=== PATIENT | female | born 1970 | race Caucasian/White ===

== ENCOUNTER → 2019-08-13 | Outpatient (CLI) | payer OTHER ==
[2019-08-13 13:15] LABS: ABSOLUTE EOSINOPHILS # (AUTO) 0.2 10^3/uL (0.0-0.6); ABSOLUTE LYMPHOCYTES (AUTO) 3.9 10^3/uL (0.5-4.7); ABSOLUTE MONOCYTES (AUTO) 0.8 10^3/uL (0.1-1.4); ABSOLUTE NEUT (AUTO) 6.9 10^3/uL (1.7-8.2); BASOPHILS % (AUTO) 0.3 % (0-2); EOSINOPHILS % (AUTO) 1.3 % (0-6); HEMATOCRIT 38.9 % (36.0-47.0); HEMOGLOBIN 13.3 g/dL (12.0-15.5); LYMPHOCYTES % (AUTO) 33.4 % (13-45); MEAN CORPUSCULAR HEMOGLOBIN 31.4 pg (27.0-33.4); MEAN CORPUSCULAR HGB CONC 34.1 g/dL (32.0-36.0); MEAN CORPUSCULAR VOLUME 92 fl (80-97); MONOCYTES % (AUTO) 6.9 % (3-13); PLATELET COUNT 242 10^3/uL (150-450); RED BLOOD COUNT 4.23 10^6/uL (3.72-5.28); RED CELL DISTRIBUTION WIDTH 15.1 % (11.5-14.0); SEGMENTED NEUTROPHILS % (AUTO) 58.1 % (42-78); TOTAL CELLS COUNTED % (AUTO) 100 %; WHITE BLOOD COUNT 11.8 10^3/uL (4.0-10.5)
[2019-08-13 13:23] LABS: APPEARANCE,URINE SLIGHTLY-CLOUDY; BILIRUBIN,URINE NEGATIVE (NEGATIVE); COLOR,URINE YELLOW; GLUCOSE, URINE NEGATIVE (NEGATIVE); KETONES,URINE NEGATIVE (NEGATIVE); LEUKOCYTE ESTERASE,URINE NEGATIVE (NEGATIVE); NITRITE,URINE NEGATIVE (NEGATIVE); PROTEIN,URINE NEGATIVE (NEGATIVE); URINE SPECIFIC GRAVITY 1.017; UROBILINOGEN,URINE NEGATIVE mg/dL (<2.0)
[2019-08-13 13:35] LABS: ANION GAP 5 (5-19); BLOOD UREA NITROGEN 27 mg/dL (7-20); CALCIUM 9.6 mg/dL (8.4-10.2); CARBON DIOXIDE 31 mmol/L (22-30); CHLORIDE 101 mmol/L (98-107); GLUCOSE 94 mg/dL (75-110); POTASSIUM 3.8 mmol/L (3.6-5.0)
--- NOTE | 2019-08-13 13:40 | RADIOLOGY REPORT (SQ) ---
EXAM DESCRIPTION: CHEST PA/LATERAL COMPLETED DATE/TIME: 08/13/2019 12:47 pm REASON FOR STUDY: PRE-OP COMPARISON: None. EXAM PARAMETERS: NUMBER OF VIEWS: two views TECHNIQUE: Digital Frontal and Lateral radiographic views of the chest acquired. RADIATION DOSE: NA LIMITATIONS: none FINDINGS: LUNGS AND PLEURA: No opacities, masses or pneumothorax. No pleural effusion. MEDIASTINUM AND HILAR STRUCTURES: No masses or contour abnormalities. HEART AND VASCULAR STRUCTURES: Heart normal size. No evidence for failure. BONES: No acute findings. HARDWARE: None in the chest. OTHER: No other significant finding. IMPRESSION: NO SIGNIFICANT RADIOGRAPHIC FINDING IN THE CHEST. TECHNICAL DOCUMENTATION: JOB ID: [id number] [employer]- All Rights Reserved Reading location - IP/workstation name: [email or web address]
--- NOTE | 2019-08-13 21:37 | EKG REPORT ---
SEVERITY:- ABNORMAL ECG - SINUS RHYTHM CONSIDER ANTERIOR INFARCT : Confirmed by: Christiane Hamlin 13-Aug-2019 21:36:40
== END ==
LOC: OD 11:59
PROVIDERS: ATTEND Orthopaedic Surgery
DX: Z01.810 Encounter for preprocedural cardiovascular examination (principal); Z01.811 Encounter for preprocedural respiratory examination; Z01.812 Encounter for preprocedural laboratory examination; M16.11 Unilateral primary osteoarthritis, right hip
CPT/HCPCS: 36415; 71046; 80048; 81001; 85025; 93005; 93010

== ENCOUNTER 2019-09-09 05:43 | Inpatient (IN) | payer OTHER ==
[~2019-09-09 05:43] MED LIST: BUPIVACAINE INJ/PF LIPOSOME/PF 266 MG/20 ML SDV INJ PRN; CEFAZOLIN INJ 1 GM VIAL IV PRN; IBUPROFEN 800 MG in NORMAL SALINE 250 ML IV PRN; LACTATED RINGERS 1000 ML IV PRN; LIDOCAINE 0.5% INJ-PF (5 MG/ML) 50 ML SDV SUBCUT PRN; OXYCODONE HCL SR 10 MG TABLET PO PRN; PANTOPRAZOLE SODIUM 20 MG TABLET.DR PO PRN; VANCOMYCIN HCL 1,000 MG in DEXTROSE 5%-WATER 250 ML IV PRN
[2019-09-09] MEDS ORDERED: OXYCODONE HCL SR 10 MG TABLET PO ONE (06:07)
[2019-09-09] MEDS ORDERED: CEFAZOLIN INJ 1 GM VIAL ONE (06:07)
[2019-09-09] MEDS ORDERED: PANTOPRAZOLE SODIUM 20 MG TABLET.DR PO ONE (06:07)
[2019-09-09] MEDS ORDERED: PROPOFOL INJ 200 MG/20 ML VIAL IV ONE (06:44)
[2019-09-09] MEDS ORDERED: ONDANSETRON HCL INJ/PF 4 MG/2 ML SDV ONE (06:44)
[2019-09-09] MEDS ORDERED: MIDAZOLAM 2 MG/2 ML INJ ONE (06:44)
[2019-09-09] MEDS ORDERED: FENTANYL CITRATE INJ/PF 100 MCG/2 ML AMPUL ONE ×2 (06:44→09:38)
[2019-09-09] MEDS ORDERED: TRANEXAMIC ACID INJ/PF 1,000 MG/10 ML SDV ONE ×2 (06:45→09:38)
[2019-09-09] MEDS ORDERED: METHYLPREDNISOLONE INJ 125 MG/2 ML SDV ONE (07:02)
[2019-09-09] MEDS ORDERED: DIPHENHYDRAMINE HCL 50 MG/ML VIAL IV PRN ×2 (08:14→08:36)
[2019-09-09] MEDS ORDERED: MEPERIDINE HCL/PF INJ 25 MG/1 ML DISP.SYRIN IV PRN (08:14)
[2019-09-09] MEDS ORDERED: FENTANYL CITRATE INJ/PF 100 MCG/2 ML AMPUL IV PRN ×3 (08:14)
[2019-09-09] MEDS ORDERED: PROMETHAZINE HCL INJ 25 MG/1 ML VIAL IV PRN (08:14)
[2019-09-09] MEDS ORDERED: ONDANSETRON 4 MG TAB.RAPDIS PO PRN (08:36)
[2019-09-09] MEDS ORDERED: ACETAMINOPHEN 325 MG TABLET PO PRN (08:36)
[2019-09-09] MEDS ORDERED: RINGERS SOLUTION,LACTATED 1,000 ML IV PRN (08:36)
[2019-09-09] MEDS ORDERED: ZOLPIDEM TARTRATE 5 MG TABLET PO PRN (08:36)
[2019-09-09] MEDS ORDERED: ONDANSETRON HCL INJ/PF 4 MG/2 ML SDV IV PRN (08:36)
[2019-09-09] MEDS ORDERED: MAG HYDROX/AL HYDROX/SIMETH SUSP 30 ML UDCUP PO PRN (08:36)
--- NOTE | 2019-09-09 08:41 | Operative Report ---
Operative Report DATE OF SURGERY: 09/09/19 PREOPERATIVE DIAGNOSIS: Right hip avascular necrosis OPERATION: Right hip arthroplasty SURGEON: JOI CLARK ANESTHESIA: Spinal TISSUE REMOVED OR ALTERED: Femoral head to pathology ESTIMATED BLOOD LOSS: 75 PROCEDURE: Implants used: Femur: [place] Accolade 2 stem size 4 Acetabular shell: 54 mm hemispherical shell Liner: 36 mm flat cross-link polyethylene liner Head: 36 mm chrome cobalt head -5 neck The patient is placed in a left lateral decubitus position on the operating table. The right lower extremity and hindquarter is prepped and draped in a sterile fashion. A curvilinear incision was made over the greater trochanter a posterior approach the hip was taken. The femoral head is dislocated and the femoral neck transected using an oscillating saw. Attention was next turned to the acetabulum. Soft tissues cleared off the acetabulum using electrocautery. The acetabulum was then prepared using a series of hemispherical reamers until a 54 millimeters reamer is seated. Subsequently a 54 millimeters Candi titanium hemispherical shell is impacted into position. A standard flat 36 millimeters cross-link liner is impacted into the shell. Attention was next turned to the femur. Access is gained to the femoral canal using a box osteotome to the piriformis fossa. The femur is then prepared using a series of broaches until a number 4 broach is seated. A trial reduction was now performed using a 36 millimeters head with and is 5 neck. Preoperative leg length was recreated and is excellent anterior posterior stability. A decision was made to proceed with the above construct. All trial implants were removed. The wound is irrigated with pulsed lavage. A number 4 stem is impacted into the femoral canal. A trial reduction was again performed with a 36 mm head and a -5 neck. Findings as previously. The hip was dislocated one last time and the final chrome-cobalt head is impacted onto the t runnion. The hip was reduced. Wound is copiously irrigated with pulsed lavage. Sent closed in layers using interrupted Vicryl followed by anthony. A sterile dressing is applied and the patient's returned to recovery room in satisfactory patient.
[2019-09-09] MEDS ORDERED: ACETAMINOPHEN 1,000 MG/100 ML RTUPB IV ONE (09:38)
--- NOTE | 2019-09-09 09:53 | RADIOLOGY REPORT (SQ) ---
EXAM DESCRIPTION: PELVIS AP COMPLETED DATE/TIME: 09/09/2019 9:28 am REASON FOR STUDY: Post Op Long Cassette in PACU M16.11 UNILATERAL PRIMARY OSTEOARTHRITIS, RIGHT HI P COMPARISON: None. NUMBER OF VIEWS: One view TECHNIQUE: Digital radiographic images of the pelvis post-procedure LIMITATIONS: None. FINDINGS: BONES: Ossific fragment along the superolateral acetabulum possibly postoperative changes or fragmented osteophyte. No additional evidence of fracture. DEVICE: Bi-polar prothesis. Device appears in appropriate location. SOFT TISSUES: No worrisome findings. Expected postoperative soft tissue changes. IMPRESSION: Postoperative changes from the right hip arthroplasty in near anatomic alignment. Ossif ic fragment along the superolateral acetabulum possibly fracture of the superolateral acetabular wall , postoperative change, or fragmented osteophyte. TECHNICAL DOCUMENTATION: JOB ID: [id number] [employer]- All Rights Reserved Reading location - IP/workstation name: [email or web address]
[2019-09-09] MEDS ORDERED: (PENDING PHARMACY ID) (Magnesium Oxide [Magnesium] 250 MG) PO SCH (10:00)
[2019-09-09] MEDS ORDERED: (PENDING PHARMACY ID) (Pravastatin Sodium [Pravastatin Sodium] 40 MG) PO SCH (10:00)
[2019-09-09] MEDS ORDERED: METRONIDAZOLE TOP SCH (10:00)
[2019-09-09] MEDS ORDERED: TRANEXAMIC ACID INJ/PF 1,000 MG/10 ML SDV IV ONE (10:00)
[2019-09-09] MEDS ORDERED: (PENDING PHARMACY ID) (Loratadine [Loratadine] 10 MG) PO SCH (10:00)
[2019-09-09] MEDS ORDERED: (PENDING PHARMACY ID) (Pregabalin [Pregabalin] 150 MG) PO SCH (10:00)
[2019-09-09] MEDS ORDERED: (PENDING PHARMACY ID) (Phentermine Hcl [Phentermine Hcl] 37.5 MG) PO SCH (10:00)
[2019-09-09] MEDS ORDERED: (PENDING PHARMACY ID) (Lisinopril/Hydrochlorothiazide [Lisinopril-Hctz 10-12.5 Mg Tab] 1 T PO SCH (10:00)
[2019-09-09] MEDS ORDERED: PREDNISONE 10 MG TABLET PO SCH (10:00)
[2019-09-09] MEDS ORDERED: (PENDING PHARMACY ID) (Estradiol [Estradiol] 1 MG) PO SCH (10:00)
[2019-09-09] MEDS ORDERED: DOXYCYCLINE HYCLATE 100 MG PO SCH (10:00)
[2019-09-09] MEDS ORDERED: LEVOTHYROXINE SODIUM 0.025 MG TABLET PO SCH (10:00)
[2019-09-09] MEDS: SENNOSIDES/DOCUSATE 8.6-50 MG 1 EACH TABLET PO SCH ×2 (10:30→17:03)
[2019-09-09] MEDS: VERAPAMIL HCL 80 MG TABLET PO SCH (12:46)
[2019-09-09] MEDS: FUROSEMIDE 20 MG TABLET PO SCH (12:47)
[2019-09-09] MEDS: OXYCODONE HCL SR 10 MG TABLET PO SCH ×2 (13:08→21:10)
[2019-09-09] MEDS: PRENATAL VITAMIN W DHA CAPSULE PO SCH (13:08)
[2019-09-09] MEDS: IBUPROFEN 800 MG in NORMAL SALINE 250 ML IV SCH ×2 (13:31→21:08)
[2019-09-09] MEDS: PREGABALIN 75 MG CAPSULE PO SCH ×2 (13:45→21:10)
[2019-09-09] MEDS: OXYCODONE HCL IR 5 MG TABLET PO PRN (16:47)
[2019-09-09] MEDS: HYDROCORTISONE SOD SUCCINATE INJ/PF 100 MG/2 ML SDV IV SCH (17:03)
[2019-09-09] MEDS: DOXYCYCLINE HYCLATE 100 MG TABLET PO SCH (17:03)
[2019-09-09] MEDS ORDERED: VANCOMYCIN HCL 1,000 MG in DEXTROSE 5%-WATER 250 ML IV ONE (20:36)
[2019-09-09] MEDS ORDERED: ATORVASTATIN CALCIUM 10 MG TABLET PO SCH (22:00)
[2019-09-09] MEDS: LORATADINE 10 MG TABLET PO SCH (22:00)
[2019-09-10] MEDS ORDERED: HYDROCORTISONE SOD SUCCINATE INJ/PF 100 MG/2 ML SDV IV ONE
[2019-09-10] MEDS: OXYCODONE HCL IR 5 MG TABLET PO PRN ×2 (00:16→05:49)
[2019-09-10] MEDS: HYDROCORTISONE SOD SUCCINATE INJ/PF 100 MG/2 ML SDV IV SCH (00:16)
[2019-09-10 05:44] LABS: HEMATOCRIT 35.5 % (36.0-47.0); HEMOGLOBIN 12.4 g/dL (12.0-15.5); MEAN CORPUSCULAR HEMOGLOBIN 32.3 pg (27.0-33.4); MEAN CORPUSCULAR VOLUME 92 fl (80-97); PLATELET COUNT 216 10^3/uL (150-450); RED BLOOD COUNT 3.85 10^6/uL (3.72-5.28); RED CELL DISTRIBUTION WIDTH 14.4 % (11.5-14.0); WHITE BLOOD COUNT 10.1 10^3/uL (4.0-10.5)
[2019-09-10] MEDS: PREGABALIN 75 MG CAPSULE PO SCH (05:50)
[2019-09-10] MEDS: DOXYCYCLINE HYCLATE 100 MG TABLET PO SCH (05:51)
[2019-09-10] MEDS: IBUPROFEN 800 MG in NORMAL SALINE 250 ML IV SCH (05:51)
[2019-09-10] MEDS ORDERED: PANTOPRAZOLE SODIUM 40 MG TABLET.DR PO SCH (06:00)
[2019-09-10] MEDS ORDERED: LEVOTHYROXINE SODIUM 0.1 MG TABLET PO SCH (06:00)
[2019-09-10] MEDS ORDERED: LEVOTHYROXINE SODIUM 0.025 MG TABLET PO SCH (06:00)
[2019-09-10 06:24] LABS: ANION GAP 8 (5-19); BLOOD UREA NITROGEN 24 mg/dL (7-20); CALCIUM 9.3 mg/dL (8.4-10.2); CARBON DIOXIDE 29 mmol/L (22-30); CHLORIDE 101 mmol/L (98-107); GLUCOSE 129 mg/dL (75-110); POTASSIUM 3.7 mmol/L (3.6-5.0)
--- NOTE | 2019-09-10 07:11 | PDOC DISCHARGE SUMMARY ---
Impression - Admit/DC Date/PCP Admission Date/Primary Care Provider: 09/09/19 05:43 NADINE THOMPSON MD Discharge Date: 09/10/19 - Discharge Diagnosis (1) Avascular necrosis of bone of right hip Is this a current diagnosis for this admission?: Yes - Additional Information Resuscitation Status: Full Code Discharge Diet: Regular Discharge Activity: Balance Activity w/Rest, No tub bath Referrals: JOI CLARK MD [ACTIVE STAFF] - 09/24/19 10:00 am NADINE THOMPSON MD [Primary Care Provider] - Home Medications: Celecoxib [Celebrex 200 mg Capsule] 200 mg PO Q12 09/09/19 Cholecalciferol (Vitamin D3) [Vitamin D3] 5,000 unit PO DAILY 09/09/19 Cyanocobalamin (Vitamin B-12) [Vitamin B-12] 5,000 mcg PO DAILY 09/09/19 Cyclobenzaprine HCl [Flexeril 10 mg Tablet] 10 mg PO Q8HP PRN 09/09/19 Doxycycline Hyclate [Vibramycin 100 mg Tablet] 100 mg PO Q12 09/09/19 Estradiol [Estrace] 1 mg PO BID 09/09/19 Furosemide [Lasix 20 mg Tablet] 20 mg PO DAILY 09/09/19 Lina Root [Lina] 550 mg PO DAILY 09/09/19 Hydrocodone/Acetaminophen [[place] 7.5-325 Tablet] 1 tab PO Q8HP PRN 09/09/19 Levothyroxine Sodium [Synthroid] 125 mcg PO Q6AM 09/09/19 Lisinopril/Hydrochlorothiazide [Zestoretic 10-12.5 mg Tablet] 1 tab PO DAILY 09/09/19 Loratadine [Claritin 10 mg Tablet] 10 mg PO DAILY 09/09/19 Magnesium 250 mg PO DAILY 09/09/19 Metronidazole/Skin Cleanser 23 [[place] 0.75% Cream Kit] 1 applic PO BIDP PRN 09/09/19 [place]-3/Dha/Epa/Fish Oil [Fish Oil 1,400 mg Softgel] 1,400 mg PO DAILY 09/09/19 Phentermine HCl [Adipex-P] 37.5 mg PO DAILY 09/09/19 Pravastatin Sodium [Pravachol] 40 mg PO DAILY 09/09/19 Prednisone [Deltasone 10 mg Tablet] 10 mg PO DAILY 09/09/19 Pregabalin [Lyrica] 150 mg PO Q8 09/09/19 Turmeric/Turmeric Ext/Pepr Ext [Turmeric Complex 500 mg Cap] 1 cap PO DAILY 09/09/19 Verapamil HCl [[place] 80 mg Tablet] 80 mg PO DAILY 09/09/19 History of Present Illiness History of Present Illness: GUERLINE RODRIGUEZ is a 49 year old female 49-year-old white female with progressive right hip pain and functional disability second to avascular necrosis. Patient is admitted for an elective right hip arthroplasty. Hospital Course Hospital Course: Patient is admitted through the operating where she undergoes an uncomplicated right hip arthroplasty. She is returned to floor in satisfactory condition. She makes excellent progress with physical therapy on the day of surgery. Physical Exam Vital Signs: Temp Pulse Resp BP Pulse Ox 36.9 C 70 17 123/74 97 09/10/19 04:15 09/10/19 04:15 09/10/19 04:15 09/10/19 04:15 09/10/19 04:15 Intake & Output 09/09/19 09/10/19 09/11/19 06:59 06:59 06:59 Intake Total 0 6710 Output Total 3460 Balance 0 3250 Weight 108.5 kg General appearance: PRESENT: no acute distress, obese Head exam: PRESENT: normocephalic Respiratory exam: PRESENT: unlabored Cardiovascular exam: PRESENT: RRR Vascular exam: PRESENT: normal capillary refill GI/Abdominal exam: PRESENT: soft Rectal exam: PRESENT: deferred Musculoskeletal exam: PRESENT: other - Right hip dressing clean dry and intact. Leg lengths are equal. Distal neurovascular examination is intact. Neurological exam: PRESENT: alert, awake, oriented to person, oriented to place, oriented to time, oriented to situation. ABSENT: motor sensory deficit Psychiatric exam: PRESENT: appropriate affect, normal mood. ABSENT: homicidal ideation, suicidal ideation Skin exam: PRESENT: dry, intact, warm. ABSENT: cyanosis, rash Results Laboratory Results: WBC 10.1 10^3/uL (4.0-10.5) 09/10/19 04:42 RBC 3.85 10^6/uL (3.72-5.28) 09/10/19 04:42 Hgb 12.4 g/dL (12.0-15.5) 09/10/19 04:42 Hct 35.5 % (36.0-47.0) L 09/10/19 04:42 MCV 92 fl (80-97) 09/10/19 04:42 MCH 32.3 pg (27.0-33.4) 09/10/19 04:42 MCHC 35.0 g/dL (32.0-36.0) 09/10/19 04:42 RDW 14.4 % (11.5-14.0) H 09/10/19 04:42 Plt Count 216 10^3/uL (150-450) 09/10/19 04:42 Sodium 138.4 mmol/L (137-145) 09/10/19 04:42 Potassium 3.7 mmol/L (3.6-5.0) 09/10/19 04:42 Chloride 101 mmol/L (98-107) 09/10/19 04:42 Carbon Dioxide 29 mmol/L (22-30) 09/10/19 04:42 Anion Gap 8 (5-19) 09/10/19 04:42 BUN 24 mg/dL (7-20) H 09/10/19 04:42 Creatinine 0.85 mg/dL (0.52-1.25) 09/10/19 04:42 Est GFR ( Amer) > 60 (>60) 09/10/19 04:42 Est GFR (MDRD) Non-Af > 60 (>60) 09/10/19 04:42 Glucose 129 mg/dL (75-110) H 09/10/19 04:42 Calcium 9.3 mg/dL (8.4-10.2) 09/10/19 04:42 Blood Type A POSITIVE 09/09/19 06:34 Antibody Screen NEGATIVE 09/09/19 06:34 Impressions: Pelvis X-Ray 09/09/19 08:37 IMPRESSION: Postoperative changes from the right hip arthroplasty in near anatomic alignment. Ossific fragment along the superolateral acetabulum possibly fracture of the superolateral acetabular wall, postoperative change, or fragmented osteophyte. Plan Plan of Treatment: Discharge home with home health services and DME. Follow-up with Dr. Clark [facility] for surgery in 2 weeks for staple removal. Stroke Is this a Stroke Patient?: No Stroke Pt being discharged on Anti-thrombolytic therapy?: Yes Acute Heart Failure - Is this a Heart Failure Patient?: No
[2019-09-10 09:29] VITALS: BP 149/90
[2019-09-10] MEDS ORDERED: PREDNISONE 10 MG TABLET PO SCH (10:00)
[2019-09-10] MEDS ORDERED: HYDROCHLOROTHIAZIDE 12.5 MG TABLET PO SCH (10:00)
[2019-09-10] MEDS ORDERED: ASPIRIN 81 MG TABLET, ENT COATED PO SCH (10:00)
[2019-09-10] MEDS ORDERED: LISINOPRIL 10 MG TABLET PO SCH (10:00)
[2019-09-10] MEDS ORDERED: MAGNESIUM OXIDE 400 MG TABLET PO SCH (10:00)
[2019-09-10] MEDS: OXYCODONE HCL SR 10 MG TABLET PO SCH (10:40)
[2019-09-10] MEDS: PRENATAL VITAMIN W DHA CAPSULE PO SCH (10:40)
[2019-09-10] MEDS: FUROSEMIDE 20 MG TABLET PO SCH (10:40)
[2019-09-10] MEDS: SENNOSIDES/DOCUSATE 8.6-50 MG 1 EACH TABLET PO SCH (10:40)
[2019-09-10] MEDS: LORATADINE 10 MG TABLET PO SCH (10:40)
[2019-09-10] MEDS: VERAPAMIL HCL 80 MG TABLET PO SCH (10:41)
== END 2019-09-10 11:10 | disposition home health service (06) | DRG 470 ==
LOC: INOR 05:43 → 4S 10:35
PROVIDERS: ADMIT Orthopaedic Surgery; ATTEND Orthopaedic Surgery
PROC: 0SR902Z Replacement of Right Hip Joint with Metal on Polyethylene Synthetic Substitute, Open Approach (ICD-10-PCS; principal; 2019-09-09 07:30)
DX: M87.051 Idiopathic aseptic necrosis of right femur (principal); E66.9 Obesity, unspecified; M05.10 Rheumatoid lung disease with rheumatoid arthritis of unspecified site; M16.11 Unilateral primary osteoarthritis, right hip; G62.9 Polyneuropathy, unspecified; E03.9 Hypothyroidism, unspecified; F41.9 Anxiety disorder, unspecified; F32.9 Major depressive disorder, single episode, unspecified; M54.5 Low back pain; M54.2 Cervicalgia; F17.210 Nicotine dependence, cigarettes, uncomplicated; W10.9XXA Fall (on) (from) unspecified stairs and steps, initial encounter; Z79.52 Long term (current) use of systemic steroids; Y93.89 Activity, other specified; Y99.8 Other external cause status
CPT/HCPCS: 01214; 36415; 72170; 80048; 84132; 85027; 86850; 86900; 86901; 88304; 88311; 94799; J0131; J0690; J1720; J1741; J2250; J2405; J2704; J2930; J3010; J3370; J3490; J7050; J7060; J7512

== ENCOUNTER 2020-04-27 08:25 | Inpatient (IN) | payer OTHER ==
[2020-04-22 10:33] LABS: HEMATOCRIT 37.9 % (36.0-47.0); HEMOGLOBIN 12.9 g/dL (12.0-15.5); MEAN CORPUSCULAR HEMOGLOBIN 31.6 pg (27.0-33.4); MEAN CORPUSCULAR HGB CONC 34.2 g/dL (32.0-36.0); MEAN CORPUSCULAR VOLUME 93 fl (80-97); PLATELET COUNT 229 10^3/uL (150-450); RED BLOOD COUNT 4.09 10^6/uL (3.72-5.28); RED CELL DISTRIBUTION WIDTH 14.2 % (11.5-14.0)
[2020-04-22 10:40] LABS: APPEARANCE,URINE CLEAR; BILIRUBIN,URINE NEGATIVE (NEGATIVE); COLOR,URINE STRAW; GLUCOSE, URINE NEGATIVE (NEGATIVE); KETONES,URINE NEGATIVE (NEGATIVE); LEUKOCYTE ESTERASE,URINE NEGATIVE (NEGATIVE); NITRITE,URINE NEGATIVE (NEGATIVE); PROTEIN,URINE NEGATIVE (NEGATIVE); URINE SPECIFIC GRAVITY 1.009; UROBILINOGEN,URINE NEGATIVE mg/dL (<2.0)
--- NOTE | 2020-04-22 10:53 | RADIOLOGY REPORT (SQ) ---
EXAM DESCRIPTION: CHEST PA/LATERAL IMAGES COMPLETED DATE/TIME: 04/22/2020 10:39 am REASON FOR STUDY: PRE-OP COMPARISON: 08/13/2019 EXAM PARAMETERS: NUMBER OF VIEWS: two views TECHNIQUE: Digital Frontal and Lateral radiographic views of the chest acquired. RADIATION DOSE: NA LIMITATIONS: none FINDINGS: LUNGS AND PLEURA: No opacities, masses or pneumothorax. No pleural effusion. MEDIASTINUM AND HILAR STRUCTURES: No masses or contour abnormalities. HEART AND VASCULAR STRUCTURES: Heart normal size. No evidence for failure. BONES: No acute findings. HARDWARE: None in the chest. OTHER: No other significant finding. IMPRESSION: 1. No significant interval changes since the prior examination dated 08/13/2019. No ac chrissie findings. TECHNICAL DOCUMENTATION: JOB ID: [id number] 2010 [employer]- All Rights Reserved Reading location - IP/workstation name: [email or web address]
[2020-04-22 10:57] LABS: ANION GAP 5 (5-19); BLOOD UREA NITROGEN 32 mg/dL (7-20); CALCIUM 9.5 mg/dL (8.4-10.2); CARBON DIOXIDE 29 mmol/L (22-30); CHLORIDE 103 mmol/L (98-107); GLUCOSE 63 mg/dL (75-110); POTASSIUM 4.5 mmol/L (3.6-5.0)
--- NOTE | 2020-04-22 13:15 | EKG REPORT ---
SEVERITY:- BORDERLINE ECG - SINUS RHYTHM CONSIDER ANTERIOR INFARCT : Confirmed by: Christiane Hamlin 22-Apr-2020 13:15:03
[~2020-04-27 08:25] MED LIST changes: +CEFAZOLIN 1 GM/D5W RTU 1 GM/50 ML RTUPB IV PRN; +DEXAMETHASONE SOD PHOSPHATE INJ 4 MG/1 ML VIAL ONE; +FENTANYL CITRATE INJ/PF 100 MCG/2 ML AMPUL ONE; +MIDAZOLAM 2 MG/2 ML INJ ONE; +ONDANSETRON HCL INJ/PF 4 MG/2 ML SDV ONE; +PROPOFOL INJ 200 MG/20 ML VIAL IV ONE; +TRANEXAMIC ACID INJ/PF 1,000 MG/10 ML SDV ONE
[2020-04-27] MEDS ORDERED: PANTOPRAZOLE SODIUM 20 MG TABLET.DR PO ONE (09:43)
[2020-04-27] MEDS ORDERED: OXYCODONE HCL SR 10 MG TABLET PO ONE (09:43)
[2020-04-27] MEDS ORDERED: BUPIVACAINE HCL 0.25% /EPINEPHRINE INJ/PF 30 ML SDV ONE (11:15)
[2020-04-27] MEDS ORDERED: THROMBIN (BOVINE) TOPICAL 20000 UNIT VIAL ONE (11:15)
[2020-04-27] MEDS ORDERED: THROMBIN (BOVINE) 5000 UNIT EPITAXIS KIT ONE (11:15)
[2020-04-27] MEDS ORDERED: CEFAZOLIN INJ 1 GM VIAL ONE (11:36)
[2020-04-27] MEDS ORDERED: FENTANYL CITRATE INJ/PF 100 MCG/2 ML AMPUL IV PRN ×3 (12:16)
[2020-04-27] MEDS ORDERED: DIPHENHYDRAMINE HCL 50 MG/ML VIAL IV PRN ×2 (12:16→12:54)
[2020-04-27] MEDS ORDERED: ONDANSETRON HCL INJ/PF 4 MG/2 ML SDV IV PRN ×2 (12:16→12:54)
[2020-04-27] MEDS ORDERED: MEPERIDINE HCL/PF INJ 25 MG/1 ML DISP.SYRIN IV PRN (12:16)
[2020-04-27] MEDS ORDERED: PROMETHAZINE HCL INJ 25 MG/1 ML VIAL IV PRN ×2 (12:16)
[2020-04-27] MEDS ORDERED: MORPHINE SULFATE 10 MG/ML INJ IV PRN (12:16)
--- NOTE | 2020-04-27 12:53 | Operative Report ---
Operative Report DATE OF SURGERY: 04/27/20 PREOPERATIVE DIAGNOSIS: Left hip arthritis OPERATION: Left hip arthroplasty SURGEON: JOI CLARK ANESTHESIA: Spinal TISSUE REMOVED OR ALTERED: Femoral head to pathology ESTIMATED BLOOD LOSS: 100 PROCEDURE: Implants used: Femur: [place] Accolade 2 stem, size 4 Acetabular shell: 52 mm hemispherical shell Liner: A 36 mm flat cross-link polyethylene liner Head: 36 mm chrome cobalt head -5 neck The patient is placed in a right lateral decubitus position on the operating table. The left lower extremity and hindquarter is prepped and draped in a sterile fashion. A curvilinear incision was made over the greater trochanter a posterior approach the hip was taken. The femoral head is dislocated and the femoral neck transected using an oscillating saw. Attention was next turned to the acetabulum. Soft tissues cleared off the acetabulum using electrocautery. The acetabulum was then prepared using a series of hemispherical reamers until a 52 millimeters reamer is seated. Subsequently a 52 millimeters Marla titanium hemispherical shell is impacted into position and secured with one screw. A standard flat 6 millimeters cross- link liner is impacted into the shell. Attention was next turned to the femur. Access is gained to the femoral canal using a box osteotome to the piriformis fossa. The femur is then prepared using a series of broaches until a number 4 broach is seated. A trial reduction was now performed using a 36 millimeters head with 9 is 5 neck. Preoperative leg length was recreated and is excellent anterior posterior stability. A decision was made to proceed with the above construct. All trial implants were removed. The wound is irrigated with pulsed lavage. A number 4 stem is impacted into the femoral canal. A trial reduction was again performed with a 36 mm head and a -5 neck. Findings as previously. The hip was dislocated one last time and the final chrome-cobalt head is impacted onto the trunnion. The hip was reduced. Wound is copiously irrigated with pulsed lavage. Sent closed in layers using interrupted Vicryl followed by anthony. A sterile dressing is applied and the patient's returned to recovery room in satisfactory patient.
[2020-04-27] MEDS ORDERED: RINGERS SOLUTION,LACTATED 1,000 ML IV PRN (12:54)
[2020-04-27] MEDS ORDERED: MAG HYDROX/AL HYDROX/SIMETH SUSP 30 ML UDCUP PO PRN (12:54)
[2020-04-27] MEDS ORDERED: ACETAMINOPHEN 325 MG TABLET PO PRN (12:54)
[2020-04-27] MEDS ORDERED: ZOLPIDEM TARTRATE 5 MG TABLET PO PRN (12:54)
[2020-04-27] MEDS ORDERED: ONDANSETRON 4 MG TAB.RAPDIS PO PRN (12:54)
[2020-04-27] MEDS ORDERED: IBUPROFEN 800 MG in NORMAL SALINE 250 ML IV SCH (14:00)
--- NOTE | 2020-04-27 14:03 | RADIOLOGY REPORT (SQ) ---
EXAM DESCRIPTION: PELVIS AP IMAGES COMPLETED DATE/TIME: 04/27/2020 1:43 pm REASON FOR STUDY: Post Op Long Cassette in PACU M16.12 UNILATERAL PRIMARY OSTEOARTHRITIS, LEFT HIP COMPARISON: 09/09/2019 NUMBER OF VIEWS: Two view(s). TECHNIQUE: Digital radiographic images of the left hip post-procedure. LIMITATIONS: None. FINDINGS: BONES: No worrisome or unexpected findings post-procedure. DEVICE: Total hip replacement. Components of the device in appropriate location. SOFT TISSUES: No worrisome findings. Expected postoperative soft tissue changes. IMPRESSION: SATISFACTORY POSTOPERATIVE LEFT HIP. TECHNICAL DOCUMENTATION: JOB ID: [id number] 2010 [employer]- All Rights Reserved Reading location - IP/workstation name: [email or web address]
[2020-04-27] MEDS ORDERED: SUCCINYLCHOLINE CHLORIDE INJ 200 MG/10 ML VIAL ONE (14:18)
[2020-04-27] MEDS: MORPHINE SULFATE 10 MG/ML INJ ONE ×4 (14:31→14:46)
[2020-04-27] MEDS ORDERED: TRANEXAMIC ACID INJ/PF 1,000 MG/10 ML SDV ONE (15:41)
[2020-04-27] MEDS: TRANEXAMIC ACID INJ/PF 1,000 MG/10 ML SDV IV ONE ×2 (15:42→17:06)
[2020-04-27] MEDS ORDERED: (PENDING PHARMACY ID) (Estradiol [Estrace] 1 MG) PO SCH (18:00)
[2020-04-27] MEDS: IBUPROFEN 800 MG in NORMAL SALINE 250 ML IV SCH (19:54)
[2020-04-27] MEDS: PREGABALIN 75 MG CAPSULE PO SCH ×2 (21:06→22:51)
[2020-04-27] MEDS: SENNOSIDES/DOCUSATE 8.6-50 MG 1 EACH TABLET PO SCH (21:08)
[2020-04-27] MEDS: OXYCODONE HCL SR 10 MG TABLET PO SCH (22:50)
[2020-04-27] MEDS: DOXYCYCLINE HYCLATE 100 MG TABLET PO SCH (22:52)
[2020-04-28] MEDS ORDERED: VANCOMYCIN HCL 1,000 MG in DEXTROSE 5%-WATER 250 ML IV ONE (01:00)
[2020-04-28] MEDS: OXYCODONE HCL IR 5 MG TABLET PO PRN ×2 (03:22→10:01)
[2020-04-28] MEDS: IBUPROFEN 800 MG in NORMAL SALINE 250 ML IV SCH ×2 (03:23→10:02)
[2020-04-28 05:44] LABS: HEMATOCRIT 31.5 % (36.0-47.0); HEMOGLOBIN 10.7 g/dL (12.0-15.5); MEAN CORPUSCULAR HEMOGLOBIN 31.6 pg (27.0-33.4); MEAN CORPUSCULAR HGB CONC 33.8 g/dL (32.0-36.0); MEAN CORPUSCULAR VOLUME 93 fl (80-97); PLATELET COUNT 216 10^3/uL (150-450); RED BLOOD COUNT 3.38 10^6/uL (3.72-5.28); RED CELL DISTRIBUTION WIDTH 13.7 % (11.5-14.0); WHITE BLOOD COUNT 11.6 10^3/uL (4.0-10.5)
[2020-04-28] MEDS ORDERED: (PENDING PHARMACY ID) (Levothyroxine Sodium [Synthroid] 125 MCG) PO SCH (06:00)
[2020-04-28] MEDS ORDERED: PANTOPRAZOLE SODIUM 40 MG TABLET.DR PO SCH (06:00)
[2020-04-28] MEDS ORDERED: LEVOTHYROXINE SODIUM 0.05 MG TABLET PO SCH (06:00)
[2020-04-28 06:17] LABS: BLOOD UREA NITROGEN 22 mg/dL (7-20); CALCIUM 8.3 mg/dL (8.4-10.2); CARBON DIOXIDE 28 mmol/L (22-30); CHLORIDE 104 mmol/L (98-107); GLUCOSE 128 mg/dL (75-110); POTASSIUM 4.3 mmol/L (3.6-5.0)
[2020-04-28 06:24] LABS: ANION GAP 3 (5-19)
[2020-04-28] MEDS: PREGABALIN 75 MG CAPSULE PO SCH (06:32)
--- NOTE | 2020-04-28 07:04 | PDOC DISCHARGE SUMMARY ---
Impression - Admit/DC Date/PCP Admission Date/Primary Care Provider: 04/27/20 08:25 NADINE THOMPSON MD Discharge Date: 04/28/20 - Discharge Diagnosis (1) Arthritis of left hip Is this a current diagnosis for this admission?: Yes - Additional Information Resuscitation Status: Full Code Discharge Diet: Regular Discharge Activity: Balance Activity w/Rest, No tub bath Referrals: NADINE THOMPSON MD [Primary Care Provider] - Home Medications: Celecoxib [Celebrex 200 mg Capsule] 200 mg PO Q12 09/09/19 Cholecalciferol (Vitamin D3) [Vitamin D3] 5,000 unit PO DAILY 09/09/19 Cyanocobalamin (Vitamin B-12) [Vitamin B-12] 5,000 mcg PO DAILY 09/09/19 Cyclobenzaprine HCl [Flexeril 10 mg Tablet] 10 mg PO Q8HP PRN 09/09/19 Doxycycline Hyclate [Vibramycin 100 mg Tablet] 100 mg PO Q12 09/09/19 Estradiol [Estrace] 2 mg PO BID 09/09/19 Furosemide [Lasix 20 mg Tablet] 20 mg PO DAILY 09/09/19 Lina Root [Lina] 550 mg PO DAILY 09/09/19 Hydrocodone/Acetaminophen [[place] 7.5-325 Tablet] 1 tab PO Q8HP PRN 09/09/19 Levothyroxine Sodium [Synthroid] 125 mcg PO Q6AM 09/09/19 Lisinopril/Hydrochlorothiazide [Zestoretic 10-12.5 mg Tablet] 1 tab PO DAILY 09/09/19 Loratadine [Claritin 10 mg Tablet] 10 mg PO DAILY 09/09/19 Magnesium 250 mg PO DAILY 09/09/19 Clonazepam [Klonopin 1 mg Tablet] 1 mg PO QHS 04/27/20 Phentermine HCl 37.5 mg PO DAILY 04/27/20 Pregabalin [Lyrica 100 Mg Capsule] 100 mg PO Q8 04/27/20 History of Present Illiness History of Present Illness: GUERLINE RODRIGUEZ is a 50 year old female 50-year-old white female status post right hip arthroplasty in the past now with progressive left hip pain and functional disability. Patient is admitted for elective left hip arthroplasty. Hospital Course Hospital Course: Patient is admitted through the operating where she undergoes uncomplicated left hip arthroplasty. She was returned to the floor in satisfactory condition. She seen by physical therapy later on the day of surgery because of the late return to the floor. She will undergo physical therapy this morning with anticipated discharge home thereafter. Physical Exam Vital Signs: Temp Pulse Resp BP Pulse Ox 36.4 C 66 16 115/62 98 04/27/20 23:32 04/27/20 23:32 04/27/20 23:32 04/27/20 23:32 04/27/20 23:32 Intake & Output 04/27/20 04/28/20 04/29/20 06:59 06:59 06:59 Intake Total 9118 Output Total 6518 Balance 2600 Weight 119.8 kg General appearance: PRESENT: no acute distress, obese Head exam: PRESENT: normocephalic Respiratory exam: PRESENT: unlabored Cardiovascular exam: PRESENT: RRR GI/Abdominal exam: PRESENT: soft Rectal exam: PRESENT: deferred Musculoskeletal exam: PRESENT: other - Left hip dressing remains clean dry and intact. Leg lengths are equal. Distal neurovascular examination is intact. Results Laboratory Results: WBC 11.6 10^3/uL (4.0-10.5) H 04/28/20 04:57 RBC 3.38 10^6/uL (3.72-5.28) L 04/28/20 04:57 Hgb 10.7 g/dL (12.0-15.5) L 04/28/20 04:57 Hct 31.5 % (36.0-47.0) L 04/28/20 04:57 MCV 93 fl (80-97) 04/28/20 04:57 MCH 31.6 pg (27.0-33.4) 04/28/20 04:57 MCHC 33.8 g/dL (32.0-36.0) 04/28/20 04:57 RDW 13.7 % (11.5-14.0) 04/28/20 04:57 Plt Count 216 10^3/uL (150-450) 04/28/20 04:57 Sodium 134.7 mmol/L (137-145) L 04/28/20 04:57 Potassium 4.3 mmol/L (3.6-5.0) 04/28/20 04:57 Chloride 104 mmol/L (98-107) 04/28/20 04:57 Carbon Dioxide 28 mmol/L (22-30) 04/28/20 04:57 Anion Gap 3 (5-19) L 04/28/20 04:57 BUN 22 mg/dL (7-20) H 04/28/20 04:57 Creatinine 1.11 mg/dL (0.52-1.25) 04/28/20 04:57 Est GFR ( Amer) > 60 (>60) 04/28/20 04:57 Est GFR (MDRD) Non-Af 52 (>60) L 04/28/20 04:57 Glucose 128 mg/dL (75-110) H 04/28/20 04:57 Calcium 8.3 mg/dL (8.4-10.2) L 04/28/20 04:57 Urine Color STRAW 04/22/20 09:35 Urine Appearance CLEAR 04/22/20 09:35 Urine pH 5.0 (5.0-9.0) 04/22/20 09:35 Ur Specific [place] 1.009 04/22/20 09:35 Urine Protein NEGATIVE mg/dL (NEGATIVE) 04/22/20 09:35 Urine Glucose (UA) NEGATIVE mg/dL (NEGATIVE) 04/22/20 09:35 Urine Ketones NEGATIVE mg/dL (NEGATIVE) 04/22/20 09:35 Urine Blood SMALL (NEGATIVE) H 04/22/20 09:35 Urine Nitrite NEGATIVE (NEGATIVE) 04/22/20 09:35 Urine Bilirubin NEGATIVE (NEGATIVE) 04/22/20 09:35 Urine Urobilinogen NEGATIVE mg/dL (<2.0) 04/22/20 09:35 Ur Leukocyte Esterase NEGATIVE (NEGATIVE) 04/22/20 09:35 Urine WBC (Auto) 2 /HPF 04/22/20 09:35 Urine RBC (Auto) 0 /HPF 04/22/20 09:35 Urine Bacteria (Auto) 1+ /HPF 04/22/20 09:35 Squamous Epi Cells Auto 2 /HPF 04/22/20 09:35 Urine Mucus (Auto) RARE /LPF 04/22/20 09:35 Urine Ascorbic Acid NEGATIVE (NEGATIVE) 04/22/20 09:35 COVID-19 Source NASOPHARYNGEAL 04/22/20 09:40 COVID-19 (ENZO) NOT DETECTED 04/22/20 09:40 Blood Type A POSITIVE 04/27/20 09:08 Antibody Screen NEGATIVE 04/27/20 09:08 Impressions: Chest X-Ray 04/22/20 10:16 IMPRESSION: 1. No significant interval changes since the prior examination dated 08/13/2019. No acute findings. Pelvis X-Ray 04/27/20 12:56 IMPRESSION: SATISFACTORY POSTOPERATIVE LEFT HIP. Plan Plan of Treatment: Patient to be discharged home with home health services and DME on a weightbearing as tolerated basis. Follow-up with Dr. Lyons and [facility] for surgery in 2 weeks for staple removal. Stroke Is this a Stroke Patient?: No Stroke Pt being discharged on Anti-thrombolytic therapy?: Yes Acute Heart Failure - Is this a Heart Failure Patient?: No
[2020-04-28] MEDS ORDERED: PRENATAL VITAMIN W DHA CAPSULE PO SCH (10:00)
[2020-04-28] MEDS ORDERED: LISINOPRIL 10 MG TABLET PO SCH (10:00)
[2020-04-28] MEDS ORDERED: PREDNISONE 10 MG TABLET PO SCH (10:00)
[2020-04-28] MEDS ORDERED: (PENDING PHARMACY ID) (Lisinopril/Hydrochlorothiazide [Zestoretic 10-12.5 Mg Tablet] 1 TAB PO SCH (10:00)
[2020-04-28] MEDS ORDERED: FUROSEMIDE 20 MG TABLET PO SCH (10:00)
[2020-04-28] MEDS ORDERED: HYDROCHLOROTHIAZIDE 12.5 MG TABLET PO SCH (10:00)
[2020-04-28] MEDS ORDERED: ASPIRIN 81 MG TABLET, ENT COATED PO SCH ×2 (10:00)
[2020-04-28] MEDS: OXYCODONE HCL SR 10 MG TABLET PO SCH (10:01)
[2020-04-28] MEDS: SENNOSIDES/DOCUSATE 8.6-50 MG 1 EACH TABLET PO SCH (10:02)
[2020-04-28] MEDS: DOXYCYCLINE HYCLATE 100 MG TABLET PO SCH (10:05)
[2020-04-28 10:15] VITALS: BP 130/65
== END 2020-04-28 10:39 | disposition home or self-care (01) | DRG 470 ==
LOC: INOR 08:25 → 4W 16:28
PROVIDERS: ADMIT Orthopaedic Surgery; ATTEND Orthopaedic Surgery
PROC: 0SRB02Z Replacement of Left Hip Joint with Metal on Polyethylene Synthetic Substitute, Open Approach (ICD-10-PCS; principal; 2020-04-27 10:30)
DX: M16.12 Unilateral primary osteoarthritis, left hip (principal); E03.9 Hypothyroidism, unspecified; M05.10 Rheumatoid lung disease with rheumatoid arthritis of unspecified site; G62.9 Polyneuropathy, unspecified; Z79.899 Other long term (current) drug therapy; Z96.641 Presence of right artificial hip joint; Z03.818 Encounter for observation for suspected exposure to other biological agents ruled out; Z88.7 Allergy status to serum and vaccine; F17.210 Nicotine dependence, cigarettes, uncomplicated; Z90.710 Acquired absence of both cervix and uterus
CPT/HCPCS: 01214; 36415; 71046; 72170; 80048; 81001; 84132; 85027; 86850; 86900; 86901; 87635; 88304; 88311; 93005; 93010; 94799; C1776; C9803; J0330; J0690; J1100; J1741; J2250; J2270; J2405; J2704; J3010; J3370; J3490; J7050; J7060; J7120; S0119